=== PATIENT | female | born 1960 ===

== ENCOUNTER 2017-01-10 13:18 | Outpatient (RCR) | payer MEDICARE, OTHER | END 2017-01-23 | disposition home or self-care (01) | LOC: WCC 13:18 | DX: L97.424 Non-pressure chronic ulcer of left heel and midfoot with necrosis of bone (principal); I70.245 Atherosclerosis of native arteries of left leg with ulceration of other part of foot; Z94.0 Kidney transplant status; Z90.49 Acquired absence of other specified parts of digestive tract; I10 Essential (primary) hypertension; N28.9 Disorder of kidney and ureter, unspecified; Z86.73 Personal history of transient ischemic attack (TIA), and cerebral infarction without residual deficits; Q87.81 Alport syndrome | CPT/HCPCS: G0277; G0463 ==

== ENCOUNTER → 2017-01-10 | Outpatient (CLI) | payer MEDICARE, OTHER ==
--- NOTE | 2017-01-10 16:19 | Diagnostic Imaging Report ---
Indication: COUGH Technique: Two views of the chest Comparison: none Findings: Lungs and pleural spaces are clear. Heart size is normal. Unusual and extensive calcifications project along the posterior border of the heart. There is a right arm PICC. Surgical clips are seen in the left arm Impression: No acute process Unusual cardiac calcifications, etiology/significance uncertain
== END | disposition home or self-care (01) ==
LOC: RAD 14:44
DX: R05 Cough (principal)
CPT/HCPCS: 71020

== ENCOUNTER 2017-03-08 13:48 | Outpatient (RCR) | payer MEDICARE, OTHER ==
[~2017-03-08] VITALS: Ht 152.4 cm; Wt 45.4 kg
[2017-03-09] MEDS ORDERED: Lidocaine 2% MPF 5ml Vial INJ ONE (15:45)
== END 2017-03-25 | disposition home or self-care (01) ==
LOC: WCC 13:48
DX: L97.522 Non-pressure chronic ulcer of other part of left foot with fat layer exposed (principal); I70.245 Atherosclerosis of native arteries of left leg with ulceration of other part of foot; M86.672 Other chronic osteomyelitis, left ankle and foot; I12.9 Hypertensive chronic kidney disease with stage 1 through stage 4 chronic kidney disease, or unspecified chronic kidney disease; N18.9 Chronic kidney disease, unspecified; Z94.0 Kidney transplant status; Z86.73 Personal history of transient ischemic attack (TIA), and cerebral infarction without residual deficits; Z90.49 Acquired absence of other specified parts of digestive tract
CPT/HCPCS: 11042; G0463